=== PATIENT | male | born 1935 | race Caucasian/White ===

== ENCOUNTER 2016-04-10 21:02 | Inpatient (IN) | payer MEDICARE, OTHER ==
[~2016-04-10] VITALS: Ht 177.8 cm; Wt 66.2 kg
[~2016-04-10 21:02] MED LIST: CLOT15CR4 TP; FINA5TAB11 PO; FOLI1TAB16 PO; GABA600T2 PO; KETO15CR TP; LEVO150T8 PO; MAGN27TA2 PO; MINE50OI TP; NORT10CA PO; VALA500T PO; WARF1TAB47 PO; WARF1TAB6 PO; [UNRECOGNIZED DRUG - CODE] TP; [UNRECOGNIZED DRUG - CODE] TP
[2016-04-10] MEDS ORDERED: IV NS 0.9% 1,000 ML BAG IV ONE (21:30)
[2016-04-10] MEDS ORDERED: HALOPERIDOL LACTATE INJ 5 MG/ML VIAL ONE ×2 (21:40→22:37)
[2016-04-10] MEDS ORDERED: ACETAMINOPHEN ES 500 MG TABLET PO ONE (22:00)
[2016-04-10] MEDS ORDERED: HALOPERIDOL LACTATE INJ 5 MG/ML VIAL IM ONE ×2 (22:00→23:00)
[2016-04-10] MEDS ORDERED: IV SET PRIMARY 1 EA INFUS.SET MC ONE (22:09)
[2016-04-10] MEDS ORDERED: IV NS 0.9% 1,000 ML ONE (22:09)
[2016-04-10] MEDS ORDERED: LORAZEPAM INJ 2 MG/ML VIAL ONE (22:15)
[2016-04-10] MEDS ORDERED: LORAZEPAM INJ 2 MG/ML VIAL IV ONE (22:30)
[2016-04-10 23:02] LABS: ANION GAP 14 (5-14); CALCIUM, SERUM 8.4 mg/dL (8.5-10.1); CARBON DIOXIDE 26 mmol/L (21-32); CHLORIDE 108 mmol/L (98-107); CREATININE 1.8 mg/dL (0.6-1.3); GLUCOSE 105 mg/dL (74-106); POTASSIUM 4.8 mmol/L (3.5-5.1); SODIUM SERUM 143 mmol/L (136-145); UREA NITROGEN, BLOOD 22 mg/dL (7-18)
[2016-04-10 23:09] LABS: ALANINE AMINOTRANSFERASE 24 U/L (12-78); ALBUMIN 2.8 g/dL (3.4-5.0); ASPARTATE AMINOTRANSFERASE 22 U/L (15-37); BILIRUBIN,DIRECT 0.1 mg/dL (0.0-0.2); BILIRUBIN,TOTAL 0.5 mg/dL (0.2-1.0); INDIRECT BILIRUBIN 0.4 mg/dL (0.0-1.1); TOTAL PROTEIN, SERUM 6.2 g/dL (6.4-8.2)
[2016-04-10 23:10] LABS: TROPONIN I < 0.017 ng/mL (0.00-0.056)
[2016-04-10] MEDS ORDERED: KETAMINE HCL (500MG/10ML) 50 MG/ML VIAL ONE (23:27)
[2016-04-10 23:30] LABS: INR 4.6 (0.87-1.13)
[2016-04-10] MEDS ORDERED: MEROPENEM 1 G in IV NS 0.9% 100 ML IV ONE (23:30)
[2016-04-10 23:32] LABS: PROTHROMBIN TIME 50.4 SECS (9.5-12.7)
[2016-04-11] VITALS (8 sets, daily range): BP systolic 91–144; BP diastolic 44–97
[2016-04-11 00:06] LABS: BASOPHILS % (AUTO) 0.1 % (0.0-2.0); DIFF TOTAL % 100 %; EOSINOPHILS # (AUTO) 0.1 /CMM (0.0-0.7); EOSINOPHILS % (AUTO) 0.8 % (0.0-6.0); HEMATOCRIT 32 % (39-51); HEMOGLOBIN 10.5 g/dL (13.5-17.5); LYMPHOCYTES % (AUTO) 6.4 % (20.0-44.0); MEAN CORPUSCULAR HEMOGLOBIN 31 PG (26.0-33.0); MEAN CORPUSCULAR HGB CONC 33 g/dl (31.0-36.0); MEAN CORPUSCULAR VOLUME 95 fL (80-96); MONOCYTES # (AUTO) 0.7 /CMM (0.1-1.30); MONOCYTES % (AUTO) 4.4 % (2.0-12.0); NEUTROPHILS # (AUTO) 14.6 /CMM (1.8-8.9); NEUTROPHILS % (AUTO) 88.3 % (43.0-81.0); PLATELET COUNT (AUTO) 288 /CMM (150-450); RED BLOOD CELL COUNT(AUTO) 3.38 MIL/uL (4.5-6.0); WHITE BLOOD COUNT (AUTO) 16.4 K/uL (4.3-11.0)
[2016-04-11] MEDS ORDERED: IV NS 0.9% 1,000 ML IV PRN ×2 (00:25→11:30)
[2016-04-11] MEDS ORDERED: MAG HYDROX/AL HYDROX/SIMETH 30 ML UDC PO PRN (00:30)
[2016-04-11] MEDS ORDERED: OLANZAPINE 10 MG VIAL IM ONE ×2 (00:30→00:39)
[2016-04-11] MEDS ORDERED: Z GUARD REMEDY 2 OZ OINT TP PRN (00:30)
[2016-04-11] MEDS ORDERED: ZOLPIDEM TARTRATE 5 MG TABLET PO PRN (00:30)
[2016-04-11] MEDS ORDERED: MAGNESIUM HYDROXIDE 30 ML UDC PO PRN (00:30)
[2016-04-11] MEDS ORDERED: HYDROCODONE/APAP 5/325MG 1 EACH TABLET PO PRN (00:30)
[2016-04-11] MEDS ORDERED: ACETAMINOPHEN 325 MG TABLET MC ONE (00:30)
[2016-04-11] MEDS ORDERED: ONDANSETRON HCL/PF 4 MG/2 ML VIAL IVP PRN (00:30)
[2016-04-11] MEDS ORDERED: ACETAMINOPHEN 325 MG TABLET PO PRN (00:30)
[2016-04-11 00:33] LABS: LACTIC ACID 2.1 mmol/L (0.4-2.0)
[2016-04-11] MEDS ORDERED: ACETAMINOPHEN 650 MG/SUPP.RECT RC ONE (00:39)
[2016-04-11] MEDS ORDERED: MEROPENEM 1 G VIAL IV ONE (00:39)
[2016-04-11] MEDS ORDERED: IV NS 0.9% 100 ML IV ONE (00:40)
[2016-04-11] MEDS ORDERED: IV SET PRIMARY PUMP SET 1 EA INFUS.SET MC ONE (00:40)
[2016-04-11 00:59] LABS: *LACTIC ACID REFLEX FLAG YES
[2016-04-11] MEDS ORDERED: IV NS 0.9% 1,000 ML ONE (02:50)
[2016-04-11] MEDS ORDERED: LEVOFLOXACIN 500 MG /D5W 100ML 100 ML IV SCH (03:30)
[2016-04-11] MEDS ORDERED: SECONDARY IV SET 1 EA INFUS.SET MC ONE ×3 (03:58→12:49)
[2016-04-11] MEDS ORDERED: [UNRECOGNIZED DRUG - OTHER] TP PRN (04:00)
[2016-04-11] MEDS ORDERED: [UNRECOGNIZED DRUG - OTHER] TP PRN (04:00)
[2016-04-11] MEDS ORDERED: PIPERACILLIN /TAZOBACTAM 3.375 G VIAL IV ONE (04:42)
[2016-04-11] MEDS ORDERED: IV D5W 100 ML IV ONE (04:42)
[2016-04-11] MEDS ORDERED: PIPERACILLIN /TAZOBACTAM 3.375 G in IV D5W 100 ML IV SCH (05:00)
[2016-04-11] MEDS ORDERED: LINEZOLID RTU BAG 600 MG in PREMIX 1 EA IV SCH (09:00)
[2016-04-11] MEDS ORDERED: MEROPENEM 500 MG in IV NS 0.9% 50 ML IV SCH (11:30)
[2016-04-11] MEDS ORDERED: PIPERACILLIN /TAZOBACTAM 2.25 G in IV D5W 50 ML IV SCH (12:00)
[2016-04-11] MEDS ORDERED: VANCOMYCIN 1 GM in IV D5W 250 ML IV ONE (12:00)
[2016-04-11] MEDS ORDERED: IV NS 0.9% 1,000 ML IV ONE (12:00)
[2016-04-11] MEDS: MEROPENEM 500 MG in IV NS 0.9% 50 ML IV SCH ×2 (12:58→23:16)
[2016-04-11] MEDS: LINEZOLID RTU BAG 600 MG in PREMIX 1 EA IV SCH (12:59)
[2016-04-11] MEDS: MINERAL OIL/PETROL OINT 396 GM JAR TP SCH ×4 (13:00→18:21)
[2016-04-11] MEDS: PANTOPRAZOLE 40 MG VIAL IV SCH (13:01)
[2016-04-11] MEDS: GABAPENTIN 300 MG CAPSULE PO SCH ×2 (13:01→18:20)
[2016-04-11] MEDS: FOLIC ACID 1 MG TABLET PO SCH (13:02)
[2016-04-11] MEDS: LEVOTHYROXINE SODIUM 150 MCG TABLET PO SCH (13:02)
[2016-04-11] MEDS: VALACYCLOVIR HCL 500 MG TABLET PO SCH ×2 (13:02→23:17)
[2016-04-11] MEDS: KETOCONAZOLE 2% CREAM 15 GM TUBE TP SCH ×2 (13:03→23:23)
[2016-04-11] MEDS: CLOTRIMAZOLE/BETAMETASONE DIPROPIONATE 15 GM TUBE TP PRN (13:04)
[2016-04-11] MEDS: IV NS 0.9% 1,000 ML IV PRN (13:05)
[2016-04-11 16:33] LABS: KETONES,URINE NEGATIVE (NEGATIVE); LEUKOCYTE ESTERASE ,URINE NEGATIVE (NEGATIVE); PH,URINE 5.5 (5.0-8.0)
[2016-04-11 16:40] LABS: ADD UA MICROSCOPIC YES
[2016-04-11 16:42] LABS: ADD URINE CULTURE NO; WBC,URINE 0-2 /HPF (0-3)
[2016-04-11 18:04] LABS: BASOPHILS % (AUTO) 0.2 % (0.0-2.0); DIFF TOTAL % 100 %; EOSINOPHILS # (AUTO) 0.9 /CMM (0.0-0.7); EOSINOPHILS % (AUTO) 10.3 % (0.0-6.0); HEMATOCRIT 31 % (39-51); LYMPHOCYTES # (AUTO) 1.3 /CMM (0.8-4.8); LYMPHOCYTES % (AUTO) 15.1 % (20.0-44.0); MEAN CORPUSCULAR HEMOGLOBIN 31 PG (26.0-33.0); MEAN CORPUSCULAR HGB CONC 33 g/dl (31.0-36.0); MEAN CORPUSCULAR VOLUME 95 fL (80-96); MONOCYTES # (AUTO) 0.6 /CMM (0.1-1.30); NEUTROPHILS # (AUTO) 5.8 /CMM (1.8-8.9); NEUTROPHILS % (AUTO) 67.4 % (43.0-81.0); PLATELET COUNT (AUTO) 279 /CMM (150-450); RED BLOOD CELL COUNT(AUTO) 3.23 MIL/uL (4.5-6.0); WHITE BLOOD COUNT (AUTO) 8.7 K/uL (4.3-11.0)
[2016-04-11 18:17] LABS: CALCIUM, SERUM 8.1 mg/dL (8.5-10.1); CREATININE 1.6 mg/dL (0.6-1.3); PHOSPHORUS 3.1 mg/dL (2.5-4.9); POTASSIUM 4.1 mmol/L (3.5-5.1)
[2016-04-11 18:28] LABS: LACTIC ACID 1.3 mmol/L (0.4-2.0)
[2016-04-11] MEDS ORDERED: NORTRIPTYLINE HCL 10 MG CAPSULE PO SCH ×2 (22:00)
[2016-04-11] MEDS: FINASTERIDE (5 MG) 5 MG TABLET PO SCH (23:17)
[2016-04-11] MEDS: HALOPERIDOL LACTATE INJ 5 MG/ML VIAL IM PRN (23:43)
[2016-04-12] MEDS: LINEZOLID RTU BAG 600 MG in PREMIX 1 EA IV SCH ×2 (01:47→12:16)
[2016-04-12 04:00] VITALS: BP 124/106
[2016-04-12] MEDS: IV NS 0.9% 1,000 ML IV PRN ×2 (06:37→21:12)
[2016-04-12 07:27] LABS: BASOPHILS % (AUTO) 0.1 % (0.0-2.0); DIFF TOTAL % 100 %; EOSINOPHILS # (AUTO) 1.5 /CMM (0.0-0.7); EOSINOPHILS % (AUTO) 17.6 % (0.0-6.0); HEMATOCRIT 29 % (39-51); HEMOGLOBIN 9.5 g/dL (13.5-17.5); LYMPHOCYTES # (AUTO) 1.6 /CMM (0.8-4.8); LYMPHOCYTES % (AUTO) 18.7 % (20.0-44.0); MEAN CORPUSCULAR HEMOGLOBIN 31 PG (26.0-33.0); MEAN CORPUSCULAR HGB CONC 33 g/dl (31.0-36.0); MEAN CORPUSCULAR VOLUME 95 fL (80-96); MONOCYTES # (AUTO) 0.8 /CMM (0.1-1.30); MONOCYTES % (AUTO) 9.5 % (2.0-12.0); NEUTROPHILS # (AUTO) 4.5 /CMM (1.8-8.9); NEUTROPHILS % (AUTO) 54.1 % (43.0-81.0); PLATELET COUNT (AUTO) 284 /CMM (150-450); RED BLOOD CELL COUNT(AUTO) 3.04 MIL/uL (4.5-6.0); WHITE BLOOD COUNT (AUTO) 8.3 K/uL (4.3-11.0)
[2016-04-12 07:40] LABS: CALCIUM, SERUM 7.9 mg/dL (8.5-10.1); CREATININE 1.5 mg/dL (0.6-1.3); PHOSPHORUS 2.8 mg/dL (2.5-4.9); POTASSIUM 4.2 mmol/L (3.5-5.1)
[2016-04-12 07:45] LABS: CHOLESTEROL 113 mg/dL (<200); HDL CHOLESTEROL 42 mg/dL (40-60); LDL 53 mg/dL (0-99); TRIGLYCERIDES 60 mg/dL (30-150)
[2016-04-12 08:00] VITALS: BP 140/56
[2016-04-12 08:04] VITALS: BP 140/56
[2016-04-12] MEDS: MEROPENEM 500 MG in IV NS 0.9% 50 ML IV SCH ×2 (10:03→21:12)
[2016-04-12] MEDS: PANTOPRAZOLE 40 MG VIAL IV SCH (10:03)
[2016-04-12] MEDS: GABAPENTIN 300 MG CAPSULE PO SCH ×2 (10:03→17:00)
[2016-04-12] MEDS: FOLIC ACID 1 MG TABLET PO SCH (10:03)
[2016-04-12] MEDS: LEVOTHYROXINE SODIUM 150 MCG TABLET PO SCH (10:03)
[2016-04-12] MEDS: VALACYCLOVIR HCL 500 MG TABLET PO SCH ×2 (10:03→17:00)
[2016-04-12] MEDS: MINERAL OIL/PETROL OINT 396 GM JAR TP SCH ×4 (10:04→17:33)
[2016-04-12] MEDS: CLOTRIMAZOLE/BETAMETASONE DIPROPIONATE 15 GM TUBE TP PRN ×2 (10:06→17:34)
[2016-04-12] MEDS: KETOCONAZOLE 2% CREAM 15 GM TUBE TP SCH ×2 (10:06→17:34)
[2016-04-12] MEDS ORDERED: Z GUARD REMEDY 4 OZ OINT TP PRN (13:30)
[2016-04-12 16:00] VITALS: BP 104/48
[2016-04-12] MEDS: Z GUARD REMEDY 2 OZ OINT TP SCH (17:33)
[2016-04-12 20:00] VITALS: BP 124/71
[2016-04-12] MEDS: LINEZOLID 600 MG TABLET PO SCH (21:12)
[2016-04-12] MEDS: FINASTERIDE (5 MG) 5 MG TABLET PO SCH (21:34)
[2016-04-13 08:00] VITALS: BP 129/55
[2016-04-13] MEDS: MEROPENEM 500 MG in IV NS 0.9% 50 ML IV SCH (09:00)
[2016-04-13] MEDS: PANTOPRAZOLE 40 MG VIAL IV SCH (09:00)
[2016-04-13] MEDS: LINEZOLID 600 MG TABLET PO SCH ×3 (09:00→21:44)
[2016-04-13] MEDS: LEVOTHYROXINE SODIUM 150 MCG TABLET PO SCH (10:22)
[2016-04-13] MEDS: FOLIC ACID 1 MG TABLET PO SCH (10:22)
[2016-04-13] MEDS: VALACYCLOVIR HCL 500 MG TABLET PO SCH ×2 (10:22→16:57)
[2016-04-13] MEDS: MINERAL OIL/PETROL OINT 396 GM JAR TP SCH ×4 (10:23→16:58)
[2016-04-13] MEDS: CLOTRIMAZOLE/BETAMETASONE DIPROPIONATE 15 GM TUBE TP PRN ×2 (10:24→16:57)
[2016-04-13] MEDS: KETOCONAZOLE 2% CREAM 15 GM TUBE TP SCH ×2 (10:24→16:58)
[2016-04-13] MEDS: Z GUARD REMEDY 2 OZ OINT TP SCH ×2 (10:24→16:58)
[2016-04-13] MEDS: diphenhydrAMINE HCL 25 MG CAPSULE PO SCH ×3 (11:43→21:44)
[2016-04-13 16:00] VITALS: BP 132/72
[2016-04-13] MEDS ORDERED: GABAPENTIN 300 MG CAPSULE PO SCH ×2 (16:00)
[2016-04-13] MEDS: GABAPENTIN 300 MG CAPSULE PO SCH ×2 (16:57→21:44)
[2016-04-13 20:00] VITALS: BP 131/69
[2016-04-13] MEDS: FINASTERIDE (5 MG) 5 MG TABLET PO SCH (21:50)
[2016-04-13] MEDS ORDERED: BACITRACIN ZINC OINT (15 GM) 15 GM TUBE TP ONE (22:23)
[2016-04-14 04:00] VITALS: BP 100/48
[2016-04-14] MEDS: HALOPERIDOL LACTATE INJ 5 MG/ML VIAL IM PRN (04:47)
[2016-04-14] MEDS: diphenhydrAMINE HCL 25 MG CAPSULE PO SCH ×4 (06:27→21:55)
[2016-04-14 08:00] VITALS: BP 95/40
[2016-04-14] MEDS: LEVOTHYROXINE SODIUM 150 MCG TABLET PO SCH (08:31)
[2016-04-14] MEDS: FOLIC ACID 1 MG TABLET PO SCH (08:31)
[2016-04-14] MEDS: VALACYCLOVIR HCL 500 MG TABLET PO SCH ×2 (08:31→16:48)
[2016-04-14] MEDS: PANTOPRAZOLE 40 MG TABLET.DR PO SCH (08:31)
[2016-04-14] MEDS: LINEZOLID 600 MG TABLET PO SCH ×2 (08:31→08:39)
[2016-04-14] MEDS: Z GUARD REMEDY 2 OZ OINT TP SCH ×2 (08:32→16:48)
[2016-04-14] MEDS: MINERAL OIL/PETROL OINT 396 GM JAR TP SCH ×4 (08:32→16:48)
[2016-04-14] MEDS: KETOCONAZOLE 2% CREAM 15 GM TUBE TP SCH ×2 (08:33→16:48)
[2016-04-14 12:00] VITALS: BP 124/68
[2016-04-14 15:20] LABS: BASOPHILS % (AUTO) 0.4 % (0.0-2.0); DIFF TOTAL % 100 %; EOSINOPHILS # (AUTO) 1.2 /CMM (0.0-0.7); EOSINOPHILS % (AUTO) 11.5 % (0.0-6.0); HEMATOCRIT 32 % (39-51); HEMOGLOBIN 10.4 g/dL (13.5-17.5); LYMPHOCYTES # (AUTO) 2.1 /CMM (0.8-4.8); MEAN CORPUSCULAR HEMOGLOBIN 31 PG (26.0-33.0); MEAN CORPUSCULAR HGB CONC 33 g/dl (31.0-36.0); MEAN CORPUSCULAR VOLUME 95 fL (80-96); MONOCYTES # (AUTO) 0.4 /CMM (0.1-1.30); MONOCYTES % (AUTO) 3.6 % (2.0-12.0); NEUTROPHILS # (AUTO) 6.4 /CMM (1.8-8.9); NEUTROPHILS % (AUTO) 63.5 % (43.0-81.0); PLATELET COUNT (AUTO) 343 /CMM (150-450); RED BLOOD CELL COUNT(AUTO) 3.35 MIL/uL (4.5-6.0); WHITE BLOOD COUNT (AUTO) 10.1 K/uL (4.3-11.0)
[2016-04-14 16:00] VITALS: BP 121/79
[2016-04-14] MEDS: GABAPENTIN 300 MG CAPSULE PO SCH ×2 (16:47→21:54)
[2016-04-14 20:00] VITALS: BP 101/58
[2016-04-14] MEDS: FINASTERIDE (5 MG) 5 MG TABLET PO SCH (22:00)
[2016-04-15] MEDS: diphenhydrAMINE HCL 25 MG CAPSULE PO SCH ×2 (07:27→10:24)
[2016-04-15] MEDS: LEVOTHYROXINE SODIUM 150 MCG TABLET PO SCH (07:28)
[2016-04-15] MEDS: PANTOPRAZOLE 40 MG TABLET.DR PO SCH (07:29)
[2016-04-15 08:00] VITALS: BP_SYST 146; BP_DIAS 126; BP_DIAS 99
[2016-04-15] MEDS: VALACYCLOVIR HCL 500 MG TABLET PO SCH (08:54)
[2016-04-15] MEDS: FOLIC ACID 1 MG TABLET PO SCH (08:54)
[2016-04-15] MEDS: KETOCONAZOLE 2% CREAM 15 GM TUBE TP SCH (08:55)
[2016-04-15] MEDS: MINERAL OIL/PETROL OINT 396 GM JAR TP SCH ×2 (08:55)
[2016-04-15] MEDS: Z GUARD REMEDY 2 OZ OINT TP SCH (08:56)
== END 2016-04-15 13:40 | disposition home or self-care (01) | DRG 871 ==
LOC: ER 21:04 → TELE1 04-11 00:19 → MEDSG1 04-11 11:56
PROVIDERS: ADMIT Family Medicine; ATTEND Family Medicine
DX: A41.9 Sepsis, unspecified organism (principal); E43 Unspecified severe protein-calorie malnutrition; G92 Toxic encephalopathy; J15.6 Pneumonia due to other Gram-negative bacteria; N17.0 Acute kidney failure with tubular necrosis; J69.0 Pneumonitis due to inhalation of food and vomit; I50.32 Chronic diastolic (congestive) heart failure; C84.00 Mycosis fungoides, unspecified site; E87.0 Hyperosmolality and hypernatremia; E87.2 Acidosis; C84.10 Sezary disease, unspecified site; C84.A0 Cutaneous T-cell lymphoma, unspecified, unspecified site; N39.0 Urinary tract infection, site not specified; D68.59 Other primary thrombophilia; R65.20 Severe sepsis without septic shock; I25.10 Atherosclerotic heart disease of native coronary artery without angina pectoris; M19.90 Unspecified osteoarthritis, unspecified site; M81.0 Age-related osteoporosis without current pathological fracture; Z79.01 Long term (current) use of anticoagulants; Z86.718 Personal history of other venous thrombosis and embolism; Z86.711 Personal history of pulmonary embolism; D63.8 Anemia in other chronic diseases classified elsewhere; T45.515A Adverse effect of anticoagulants, initial encounter; T36.1X5A Adverse effect of cephalosporins and other beta-lactam antibiotics, initial encounter; Y92.89 Other specified places as the place of occurrence of the external cause; Z68.20 Body mass index [BMI] 20.0-20.9, adult; I11.0 Hypertensive heart disease with heart failure; E86.9 Volume depletion, unspecified; Z86.14 Personal history of Methicillin resistant Staphylococcus aureus infection
CPT/HCPCS: 36415; 71010-TC; 71250-TC; 72192-TC; 74150-TC; 80048-TC; 80061-TC; 80076-TC; 81000-TC; 83605-TC; 83735-TC; 84100-TC; 84484-TC; 85025-TC; 85730-TC; 87040-TC; 87081-TC; 87086-TC; 87186-TC; 87400; 92526; 92611-TC; 97001-TC; 97110-TC; 97116-TC; 97530-TC; A4216; A4606; C9113; J1630; J1956; J2020; J2060; J2185; J2543; J3370; J3490; J7030; J7060; Q0163; Z7610

== ENCOUNTER 2016-04-20 17:09 | Inpatient (IN) | payer MEDICARE, OTHER ==
[~2016-04-20] VITALS: Ht 182.9 cm; Wt 56.2 kg
[2016-04-20] MEDS ORDERED: LIDOCAINE /MPF 1% VIAL 5 ML VIAL ONE (17:30)
[2016-04-20] MEDS ORDERED: IV NS 0.9% 1,000 ML ONE (17:30)
[2016-04-20] MEDS ORDERED: IV NS 0.9% 1,000 ML BAG IV ONE (17:30)
[2016-04-20] MEDS ORDERED: OLANZAPINE 10 MG VIAL IM ONE ×2 (17:30)
[2016-04-20] MEDS ORDERED: IV SET PRIMARY PUMP SET 1 EA INFUS.SET MC ONE ×2 (17:31→21:21)
[2016-04-20 19:00] LABS: BASOPHILS # (AUTO) 0.2 /CMM (0.0-0.2); DIFF TOTAL % 100 %; EOSINOPHILS # (AUTO) 0.1 /CMM (0.0-0.7); EOSINOPHILS % (AUTO) 0.3 % (0.0-6.0); HEMATOCRIT 29 % (39-51); HEMOGLOBIN 9.2 g/dL (13.5-17.5); LYMPHOCYTES # (AUTO) 0.7 /CMM (0.8-4.8); LYMPHOCYTES % (AUTO) 3.5 % (20.0-44.0); MEAN CORPUSCULAR HEMOGLOBIN 31 PG (26.0-33.0); MEAN CORPUSCULAR HGB CONC 32 g/dl (31.0-36.0); MEAN CORPUSCULAR VOLUME 95 fL (80-96); MONOCYTES # (AUTO) 0.5 /CMM (0.1-1.30); MONOCYTES % (AUTO) 2.7 % (2.0-12.0); NEUTROPHILS # (AUTO) 18.6 /CMM (1.8-8.9); NEUTROPHILS % (AUTO) 92.5 % (43.0-81.0); PLATELET COUNT (AUTO) 298 /CMM (150-450); RED BLOOD CELL COUNT(AUTO) 3.01 MIL/uL (4.5-6.0); WHITE BLOOD COUNT (AUTO) 20.1 K/uL (4.3-11.0)
[2016-04-20] MEDS ORDERED: LORAZEPAM INJ 2 MG/ML VIAL IM ONE (19:00)
[2016-04-20] MEDS ORDERED: LORAZEPAM INJ 2 MG/ML VIAL ONE (19:07)
[2016-04-20 19:15] LABS: INR 1.8 (0.87-1.13); PROTHROMBIN TIME 18.9 SECS (9.5-12.7)
[2016-04-20 19:17] LABS: ALBUMIN 2.3 g/dL (3.4-5.0); BILIRUBIN,DIRECT 0.1 mg/dL (0.0-0.2); BILIRUBIN,TOTAL 0.5 mg/dL (0.2-1.0); CALCIUM, SERUM 8.5 mg/dL (8.5-10.1); CREATININE 2.1 mg/dL (0.6-1.3); INDIRECT BILIRUBIN 0.4 mg/dL (0.0-1.1); POTASSIUM 5.3 mmol/L (3.5-5.1); TOTAL PROTEIN, SERUM 5.3 g/dL (6.4-8.2)
[2016-04-20 19:19] LABS: TROPONIN I 0.017 ng/mL (0.00-0.056)
[2016-04-20] MEDS ORDERED: MEROPENEM 500 MG in IV NS 0.9% 50 ML IV ONE (20:00)
[2016-04-20] MEDS ORDERED: IV NS 0.9% 1,000 ML IV PRN (20:29)
[2016-04-20] MEDS ORDERED: MAG HYDROX/AL HYDROX/SIMETH 30 ML UDC PO PRN (20:30)
[2016-04-20] MEDS ORDERED: ONDANSETRON HCL/PF 4 MG/2 ML VIAL IVP PRN (20:30)
[2016-04-20] MEDS ORDERED: MAGNESIUM HYDROXIDE 30 ML UDC PO PRN (20:30)
[2016-04-20] MEDS ORDERED: [UNRECOGNIZED DRUG - OTHER] TP PRN (20:30)
[2016-04-20] MEDS ORDERED: ACETAMINOPHEN 325 MG TABLET PO PRN (20:30)
[2016-04-20] MEDS ORDERED: [UNRECOGNIZED DRUG - OTHER] TP PRN (20:30)
[2016-04-20] MEDS ORDERED: ZOLPIDEM TARTRATE 5 MG TABLET PO PRN (20:30)
[2016-04-20] MEDS ORDERED: MEROPENEM 1 G VIAL IV ONE (20:33)
[2016-04-20] MEDS ORDERED: IV NS 0.9% 250 ML IV ONE (20:33)
[2016-04-20] MEDS ORDERED: MEROPENEM 1 G in IV NS 0.9% 100 ML IV SCH ×2 (21:00)
[2016-04-20 21:01] LABS: ADD UA MICROSCOPIC NO; KETONES,URINE NEGATIVE (NEGATIVE); LEUKOCYTE ESTERASE ,URINE NEGATIVE (NEGATIVE)
[2016-04-21] MEDS ORDERED: NORTRIPTYLINE HCL 10 MG CAPSULE ONE (00:03)
[2016-04-21] MEDS ORDERED: ZOLPIDEM TARTRATE 5 MG TABLET ONE (00:04)
[2016-04-21] MEDS ORDERED: FINASTERIDE (5 MG) 5 MG TABLET ONE (00:04)
[2016-04-21] MEDS: NORTRIPTYLINE HCL 10 MG CAPSULE PO SCH (00:17)
[2016-04-21] MEDS: FINASTERIDE (5 MG) 5 MG TABLET PO SCH (00:18)
[2016-04-21] MEDS ORDERED: diphenhydrAMINE HCL 50 MG CAPSULE ONE (00:25)
[2016-04-21] MEDS: diphenhydrAMINE HCL 50 MG CAPSULE PO PRN ×2 (00:30→10:56)
[2016-04-21] MEDS ORDERED: LORAZEPAM INJ 2 MG/ML VIAL ONE (03:27)
[2016-04-21] MEDS: LORAZEPAM INJ 2 MG/ML VIAL IV PRN (03:45)
[2016-04-21 07:31] LABS: CALCIUM, SERUM 8.3 mg/dL (8.5-10.1); CREATININE 1.8 mg/dL (0.6-1.3); PHOSPHORUS 4.2 mg/dL (2.5-4.9); POTASSIUM 4.8 mmol/L (3.5-5.1)
[2016-04-21 07:33] LABS: BASOPHILS % (AUTO) 0.3 % (0.0-2.0); EOSINOPHILS # (AUTO) 0.3 /CMM (0.0-0.7); EOSINOPHILS % (AUTO) 2.9 % (0.0-6.0); HEMATOCRIT 28 % (39-51); HEMOGLOBIN 8.9 g/dL (13.5-17.5); LYMPHOCYTES # (AUTO) 0.9 /CMM (0.8-4.8); LYMPHOCYTES % (AUTO) 7.6 % (20.0-44.0); MEAN CORPUSCULAR HEMOGLOBIN 31 PG (26.0-33.0); MEAN CORPUSCULAR HGB CONC 33 g/dl (31.0-36.0); MEAN CORPUSCULAR VOLUME 96 fL (80-96); MONOCYTES # (AUTO) 0.5 /CMM (0.1-1.30); MONOCYTES % (AUTO) 4.6 % (2.0-12.0); NEUTROPHILS % (AUTO) 84.6 % (43.0-81.0); PLATELET COUNT (AUTO) 239 /CMM (150-450); RED BLOOD CELL COUNT(AUTO) 2.88 MIL/uL (4.5-6.0); WHITE BLOOD COUNT (AUTO) 11.9 K/uL (4.3-11.0)
[2016-04-21 08:00] VITALS: BP 96/65
[2016-04-21 08:20] LABS: DIFF TOTAL % 100 %
[2016-04-21] MEDS: FOLIC ACID 1 MG TABLET PO SCH (08:28)
[2016-04-21] MEDS: GABAPENTIN 300 MG CAPSULE PO SCH ×2 (08:28→17:02)
[2016-04-21] MEDS: PANTOPRAZOLE 40 MG TABLET.DR PO SCH (08:28)
[2016-04-21] MEDS: VALACYCLOVIR HCL 500 MG TABLET PO SCH ×2 (08:28→17:01)
[2016-04-21] MEDS: MINERAL OIL/PETROL OINT 396 GM JAR TP SCH ×4 (09:00→17:14)
[2016-04-21] MEDS ORDERED: [UNRECOGNIZED DRUG - MIXTURE] TP SCH (09:00)
[2016-04-21] MEDS ORDERED: MAGNESIUM AMINO ACID CHELATE PO SCH (09:00)
[2016-04-21] MEDS: KETOCONAZOLE 2% CREAM 15 GM TUBE TP SCH ×2 (09:00→17:00)
[2016-04-21] MEDS ORDERED: LEVOTHYROXINE SODIUM 150 MCG TABLET PO SCH (09:00)
[2016-04-21] MEDS ORDERED: SECONDARY IV SET 1 EA INFUS.SET MC ONE ×2 (09:05→13:50)
[2016-04-21] MEDS: MEROPENEM 1 G in IV NS 0.9% 100 ML IV SCH ×2 (09:06→21:57)
[2016-04-21] MEDS ORDERED: LEVOFLOXACIN 750 MG /D5W 150ML 750 MG in PREMIX 1 EA IV SCH (12:30)
[2016-04-21] MEDS ORDERED: FEE PK DOSING 1 MIN EA MC ONE (12:55)
[2016-04-21] MEDS: VANCOMYCIN 1 GM in IV D5W 250 ML IV SCH (14:09)
[2016-04-21] MEDS: CLOTRIMAZOLE/BETAMETASONE DIPROPIONATE 15 GM TUBE TP PRN (14:10)
[2016-04-21] MEDS: UREA 10% -AHA 4% CREAM 57 GM TUBE TP SCH ×2 (14:11→17:13)
[2016-04-21] MEDS: NEOMY SULF/BACITRAC ZN/POLY 15 GM TUBE TP SCH (14:12)
[2016-04-21] MEDS: OSELTAMIVIR PHOSPHATE 75 MG CAPSULE PO SCH ×2 (14:21→17:02)
[2016-04-21] MEDS: LEVOFLOXACIN 750 MG /D5W 150ML 750 MG in PREMIX 1 EA IV SCH (14:22)
[2016-04-21 16:00] VITALS: BP 97/66
[2016-04-21] MEDS: WARFARIN SODIUM 1 MG TABLET PO SCH (17:03)
[2016-04-21] MEDS: Z GUARD REMEDY 2 OZ OINT TP PRN (17:13)
[2016-04-22] MEDS: FINASTERIDE (5 MG) 5 MG TABLET PO SCH ×2 (00:06→21:25)
[2016-04-22] MEDS: NORTRIPTYLINE HCL 10 MG CAPSULE PO SCH ×2 (00:06→21:25)
[2016-04-22 08:13] LABS: BASOPHILS % (AUTO) 0.3 % (0.0-2.0); DIFF TOTAL % 100 %; EOSINOPHILS # (AUTO) 0.9 /CMM (0.0-0.7); EOSINOPHILS % (AUTO) 13.6 % (0.0-6.0); HEMATOCRIT 25 % (39-51); HEMOGLOBIN 7.9 g/dL (13.5-17.5); LYMPHOCYTES # (AUTO) 0.8 /CMM (0.8-4.8); LYMPHOCYTES % (AUTO) 11.9 % (20.0-44.0); MEAN CORPUSCULAR HEMOGLOBIN 30 PG (26.0-33.0); MEAN CORPUSCULAR HGB CONC 32 g/dl (31.0-36.0); MEAN CORPUSCULAR VOLUME 96 fL (80-96); MONOCYTES # (AUTO) 0.5 /CMM (0.1-1.30); MONOCYTES % (AUTO) 7.4 % (2.0-12.0); NEUTROPHILS # (AUTO) 4.5 /CMM (1.8-8.9); NEUTROPHILS % (AUTO) 66.8 % (43.0-81.0); PLATELET COUNT (AUTO) 211 /CMM (150-450); RED BLOOD CELL COUNT(AUTO) 2.59 MIL/uL (4.5-6.0); WHITE BLOOD COUNT (AUTO) 6.7 K/uL (4.3-11.0)
[2016-04-22 08:48] LABS: CALCIUM, SERUM 7.6 mg/dL (8.5-10.1); CREATININE 1.3 mg/dL (0.6-1.3)
[2016-04-22] MEDS: MEROPENEM 1 G in IV NS 0.9% 100 ML IV SCH ×2 (09:00→21:05)
[2016-04-22] MEDS: GABAPENTIN 300 MG CAPSULE PO SCH ×2 (09:01→17:44)
[2016-04-22] MEDS: LEVOTHYROXINE SODIUM 75 MCG TABLET PO SCH (09:01)
[2016-04-22] MEDS: OSELTAMIVIR PHOSPHATE 75 MG CAPSULE PO SCH (09:01)
[2016-04-22] MEDS: FOLIC ACID 1 MG TABLET PO SCH (09:01)
[2016-04-22] MEDS: VALACYCLOVIR HCL 500 MG TABLET PO SCH ×2 (09:01→17:44)
[2016-04-22] MEDS: PANTOPRAZOLE 40 MG TABLET.DR PO SCH (09:01)
[2016-04-22] MEDS: MINERAL OIL/PETROL OINT 396 GM JAR TP SCH ×4 (09:02→17:53)
[2016-04-22] MEDS: Z GUARD REMEDY 2 OZ OINT TP PRN (09:03)
[2016-04-22] MEDS: CLOTRIMAZOLE/BETAMETASONE DIPROPIONATE 15 GM TUBE TP PRN ×2 (09:03→09:05)
[2016-04-22] MEDS: NEOMY SULF/BACITRAC ZN/POLY 15 GM TUBE TP SCH (09:03)
[2016-04-22] MEDS: UREA 10% -AHA 4% CREAM 57 GM TUBE TP SCH ×2 (09:05→17:54)
[2016-04-22] MEDS ORDERED: IV D5/ 0.9% NACL 1,000 ML IV PRN (10:00)
[2016-04-22] MEDS: LORAZEPAM INJ 2 MG/ML VIAL IV PRN (10:02)
[2016-04-22] MEDS: KETOCONAZOLE 2% CREAM 15 GM TUBE TP SCH ×2 (12:35→17:54)
[2016-04-22] MEDS: diphenhydrAMINE HCL 50 MG CAPSULE PO PRN ×2 (12:36→16:00)
[2016-04-22] MEDS: VANCOMYCIN 1 GM in IV D5W 250 ML IV SCH (12:36)
[2016-04-22] MEDS ORDERED: SECONDARY IV SET 1 EA INFUS.SET MC ONE (14:20)
[2016-04-22] MEDS: METRONIDAZOLE 500MG/ NS 100ML 500 MG in PREMIX 1 EA IV SCH ×2 (14:24→22:34)
[2016-04-22 17:29] LABS: INR 1.67 (0.87-1.13); PROTHROMBIN TIME 18.1 SECS (9.5-12.7)
[2016-04-22] MEDS: WARFARIN SODIUM 1 MG TABLET PO SCH (17:49)
[2016-04-22 20:00] VITALS: BP 86/39
[2016-04-22] MEDS ORDERED: IV NS 0.9% 1,000 ML ONE (21:02)
[2016-04-22] MEDS ORDERED: IV D5/ 0.9% NACL 1,000 ML IV ONE (21:06)
[2016-04-22] MEDS ORDERED: LORAZEPAM INJ 2 MG/ML VIAL ONE (23:47)
[2016-04-23] MEDS ORDERED: LORAZEPAM INJ 2 MG/ML VIAL IV ONE
[2016-04-23] MEDS ORDERED: HALOPERIDOL LACTATE INJ 5 MG/ML VIAL ONE (00:46)
[2016-04-23] MEDS: HALOPERIDOL LACTATE INJ 5 MG/ML VIAL IM PRN (00:50)
[2016-04-23 04:00] VITALS: BP 84/66
[2016-04-23] MEDS: METRONIDAZOLE 500MG/ NS 100ML 500 MG in PREMIX 1 EA IV SCH ×3 (05:10→21:29)
[2016-04-23 07:53] LABS: BASOPHILS % (AUTO) 0.5 % (0.0-2.0); DIFF TOTAL % 100 %; EOSINOPHILS % (AUTO) 13.9 % (0.0-6.0); HEMATOCRIT 29 % (39-51); HEMOGLOBIN 9.4 g/dL (13.5-17.5); LYMPHOCYTES # (AUTO) 0.9 /CMM (0.8-4.8); LYMPHOCYTES % (AUTO) 13.3 % (20.0-44.0); MEAN CORPUSCULAR HEMOGLOBIN 31 PG (26.0-33.0); MEAN CORPUSCULAR HGB CONC 32 g/dl (31.0-36.0); MEAN CORPUSCULAR VOLUME 96 fL (80-96); MONOCYTES # (AUTO) 0.5 /CMM (0.1-1.30); MONOCYTES % (AUTO) 7.5 % (2.0-12.0); NEUTROPHILS # (AUTO) 4.5 /CMM (1.8-8.9); NEUTROPHILS % (AUTO) 64.8 % (43.0-81.0); PLATELET COUNT (AUTO) 275 /CMM (150-450); RED BLOOD CELL COUNT(AUTO) 3.01 MIL/uL (4.5-6.0); WHITE BLOOD COUNT (AUTO) 6.9 K/uL (4.3-11.0)
[2016-04-23 07:56] LABS: CALCIUM, SERUM 8.2 mg/dL (8.5-10.1); CREATININE 1.6 mg/dL (0.6-1.3); POTASSIUM 4.3 mmol/L (3.5-5.1)
[2016-04-23 08:00] VITALS: BP 113/47
[2016-04-23] MEDS ORDERED: VANCOMYCIN 1 GM in IV D5W 250 ML IV SCH (08:00)
[2016-04-23] MEDS: GABAPENTIN 300 MG CAPSULE PO SCH ×2 (08:34→16:19)
[2016-04-23] MEDS: LEVOTHYROXINE SODIUM 75 MCG TABLET PO SCH (08:34)
[2016-04-23] MEDS: PANTOPRAZOLE 40 MG TABLET.DR PO SCH (08:34)
[2016-04-23] MEDS: FOLIC ACID 1 MG TABLET PO SCH (08:34)
[2016-04-23] MEDS: VALACYCLOVIR HCL 500 MG TABLET PO SCH ×2 (08:34→16:19)
[2016-04-23] MEDS: KETOCONAZOLE 2% CREAM 15 GM TUBE TP SCH ×2 (08:43→16:21)
[2016-04-23] MEDS: MINERAL OIL/PETROL OINT 396 GM JAR TP SCH ×4 (08:56→16:21)
[2016-04-23] MEDS: UREA 10% -AHA 4% CREAM 57 GM TUBE TP SCH ×2 (08:57→16:21)
[2016-04-23] MEDS: NEOMY SULF/BACITRAC ZN/POLY 15 GM TUBE TP SCH (08:58)
[2016-04-23] MEDS: MEROPENEM 1 G in IV NS 0.9% 100 ML IV SCH (09:48)
[2016-04-23] MEDS ORDERED: IV D5W 1,000 ML IV PRN (11:30)
[2016-04-23] MEDS ORDERED: IV SET PRIMARY PUMP SET 1 EA INFUS.SET MC ONE (12:34)
[2016-04-23] MEDS: IV D5W 1,000 ML IV PRN (12:42)
[2016-04-23] MEDS: LEVOFLOXACIN 750 MG /D5W 150ML 750 MG in PREMIX 1 EA IV SCH (14:20)
[2016-04-23 16:00] VITALS: BP 93/42
[2016-04-23] MEDS: WARFARIN SODIUM 1 MG TABLET PO SCH (16:20)
[2016-04-23] MEDS: VANCOMYCIN HCL 125 MG/2.5 ML ORAL.SUSP PO SCH (18:11)
[2016-04-23 20:00] VITALS: BP 142/68
[2016-04-23] MEDS: FINASTERIDE (5 MG) 5 MG TABLET PO SCH (21:29)
[2016-04-23] MEDS: NORTRIPTYLINE HCL 10 MG CAPSULE PO SCH (21:29)
[2016-04-24] MEDS: IV D5W 1,000 ML IV PRN ×2 (02:54→15:08)
[2016-04-24 04:00] VITALS: BP 102/53
[2016-04-24] MEDS: METRONIDAZOLE 500MG/ NS 100ML 500 MG in PREMIX 1 EA IV SCH ×2 (05:18→11:57)
[2016-04-24 06:12] LABS: BASOPHILS % (AUTO) 0.2 % (0.0-2.0); DIFF TOTAL % 100 %; EOSINOPHILS # (AUTO) 1.2 /CMM (0.0-0.7); EOSINOPHILS % (AUTO) 15.5 % (0.0-6.0); HEMATOCRIT 28 % (39-51); LYMPHOCYTES # (AUTO) 1.1 /CMM (0.8-4.8); LYMPHOCYTES % (AUTO) 13.1 % (20.0-44.0); MEAN CORPUSCULAR HEMOGLOBIN 30 PG (26.0-33.0); MEAN CORPUSCULAR HGB CONC 32 g/dl (31.0-36.0); MEAN CORPUSCULAR VOLUME 96 fL (80-96); MONOCYTES # (AUTO) 0.4 /CMM (0.1-1.30); MONOCYTES % (AUTO) 4.8 % (2.0-12.0); NEUTROPHILS # (AUTO) 5.4 /CMM (1.8-8.9); NEUTROPHILS % (AUTO) 66.4 % (43.0-81.0); PLATELET COUNT (AUTO) 297 /CMM (150-450); RED BLOOD CELL COUNT(AUTO) 2.96 MIL/uL (4.5-6.0); WHITE BLOOD COUNT (AUTO) 8.1 K/uL (4.3-11.0)
[2016-04-24 06:14] LABS: CALCIUM, SERUM 8.4 mg/dL (8.5-10.1); CREATININE 1.6 mg/dL (0.6-1.3); POTASSIUM 4.3 mmol/L (3.5-5.1)
[2016-04-24] MEDS: VANCOMYCIN HCL 125 MG/2.5 ML ORAL.SUSP PO SCH ×4 (06:32→16:51)
[2016-04-24 08:00] VITALS: BP 102/64
[2016-04-24] MEDS ORDERED: VANCOMYCIN 1 GM in IV D5W 250 ML IV SCH (08:00)
[2016-04-24] MEDS: VALACYCLOVIR HCL 500 MG TABLET PO SCH ×2 (09:21→16:51)
[2016-04-24] MEDS: PANTOPRAZOLE 40 MG TABLET.DR PO SCH (09:22)
[2016-04-24] MEDS: GABAPENTIN 300 MG CAPSULE PO SCH ×2 (09:22→16:51)
[2016-04-24] MEDS: FOLIC ACID 1 MG TABLET PO SCH (09:22)
[2016-04-24] MEDS: LEVOTHYROXINE SODIUM 75 MCG TABLET PO SCH (09:22)
[2016-04-24] MEDS: MINERAL OIL/PETROL OINT 396 GM JAR TP SCH ×4 (09:22→16:53)
[2016-04-24] MEDS: UREA 10% -AHA 4% CREAM 57 GM TUBE TP SCH ×2 (09:23→16:53)
[2016-04-24] MEDS: KETOCONAZOLE 2% CREAM 15 GM TUBE TP SCH ×2 (09:23→16:53)
[2016-04-24] MEDS: NEOMY SULF/BACITRAC ZN/POLY 15 GM TUBE TP SCH (10:34)
[2016-04-24] MEDS: WARFARIN SODIUM 1 MG TABLET PO SCH (15:00)
[2016-04-24 16:00] VITALS: BP 87/47
[2016-04-24 20:00] VITALS: BP 105/57
[2016-04-24] MEDS: METRONIDAZOLE 500 MG TABLET PO SCH (20:51)
[2016-04-24] MEDS: FINASTERIDE (5 MG) 5 MG TABLET PO SCH (22:00)
[2016-04-24] MEDS: NORTRIPTYLINE HCL 10 MG CAPSULE PO SCH (22:00)
[2016-04-25] MEDS: VANCOMYCIN HCL 125 MG/2.5 ML ORAL.SUSP PO SCH ×5 (00:52→23:58)
[2016-04-25] MEDS: IV D5W 1,000 ML IV PRN ×2 (01:32→11:27)
[2016-04-25 04:00] VITALS: BP 117/45
[2016-04-25] MEDS: METRONIDAZOLE 500 MG TABLET PO SCH ×3 (05:02→21:41)
[2016-04-25 07:15] LABS: DIFF TOTAL % 100 %; EOSINOPHILS # (AUTO) 1.5 /CMM (0.0-0.7); EOSINOPHILS % (AUTO) 16.2 % (0.0-6.0); HEMATOCRIT 29 % (39-51); HEMOGLOBIN 9.3 g/dL (13.5-17.5); LYMPHOCYTES # (AUTO) 1.2 /CMM (0.8-4.8); LYMPHOCYTES % (AUTO) 12.7 % (20.0-44.0); MEAN CORPUSCULAR HEMOGLOBIN 31 PG (26.0-33.0); MEAN CORPUSCULAR HGB CONC 33 g/dl (31.0-36.0); MEAN CORPUSCULAR VOLUME 95 fL (80-96); MONOCYTES # (AUTO) 0.4 /CMM (0.1-1.30); NEUTROPHILS # (AUTO) 6.2 /CMM (1.8-8.9); NEUTROPHILS % (AUTO) 67.1 % (43.0-81.0); PLATELET COUNT (AUTO) 297 /CMM (150-450); WHITE BLOOD COUNT (AUTO) 9.2 K/uL (4.3-11.0)
[2016-04-25 07:41] LABS: CREATININE 1.5 mg/dL (0.6-1.3); POTASSIUM 4.1 mmol/L (3.5-5.1)
[2016-04-25 08:00] VITALS: BP 97/44
[2016-04-25] MEDS: FOLIC ACID 1 MG TABLET PO SCH (08:26)
[2016-04-25] MEDS: LEVOTHYROXINE SODIUM 75 MCG TABLET PO SCH (08:26)
[2016-04-25] MEDS: GABAPENTIN 300 MG CAPSULE PO SCH ×2 (08:26→16:10)
[2016-04-25] MEDS: VALACYCLOVIR HCL 500 MG TABLET PO SCH ×2 (08:26→16:10)
[2016-04-25] MEDS: PANTOPRAZOLE 40 MG TABLET.DR PO SCH (08:26)
[2016-04-25] MEDS: MINERAL OIL/PETROL OINT 396 GM JAR TP SCH ×4 (08:27→16:11)
[2016-04-25] MEDS: NEOMY SULF/BACITRAC ZN/POLY 15 GM TUBE TP SCH (08:28)
[2016-04-25] MEDS: KETOCONAZOLE 2% CREAM 15 GM TUBE TP SCH ×2 (08:28→16:12)
[2016-04-25] MEDS: UREA 10% -AHA 4% CREAM 57 GM TUBE TP SCH ×2 (08:28→16:12)
[2016-04-25] MEDS: LEVOFLOXACIN (750 MG) 750 MG TABLET PO SCH (13:35)
[2016-04-25] MEDS: WARFARIN SODIUM 1 MG TABLET PO SCH (15:20)
[2016-04-25 16:00] VITALS: BP_SYST 97; BP_DIAS 43; BP_DIAS 44
[2016-04-25 20:00] VITALS: BP 107/64
[2016-04-25] MEDS: FINASTERIDE (5 MG) 5 MG TABLET PO SCH (21:42)
[2016-04-25] MEDS: NORTRIPTYLINE HCL 10 MG CAPSULE PO SCH (21:42)
[2016-04-26 04:00] VITALS: BP 111/54
[2016-04-26 04:23] VITALS: BP 107/52
[2016-04-26] MEDS: METRONIDAZOLE 500 MG TABLET PO SCH ×3 (05:20→21:50)
[2016-04-26] MEDS: diphenhydrAMINE HCL 50 MG CAPSULE PO PRN ×2 (05:20→13:34)
[2016-04-26] MEDS: VANCOMYCIN HCL 125 MG/2.5 ML ORAL.SUSP PO SCH ×3 (05:20→17:20)
[2016-04-26 07:03] LABS: BASOPHILS % (AUTO) 0.2 % (0.0-2.0); DIFF TOTAL % 100 %; EOSINOPHILS # (AUTO) 1.4 /CMM (0.0-0.7); EOSINOPHILS % (AUTO) 17.2 % (0.0-6.0); HEMATOCRIT 32 % (39-51); HEMOGLOBIN 10.1 g/dL (13.5-17.5); LYMPHOCYTES # (AUTO) 1.1 /CMM (0.8-4.8); LYMPHOCYTES % (AUTO) 13.1 % (20.0-44.0); MEAN CORPUSCULAR HEMOGLOBIN 30 PG (26.0-33.0); MEAN CORPUSCULAR HGB CONC 32 g/dl (31.0-36.0); MEAN CORPUSCULAR VOLUME 95 fL (80-96); MONOCYTES # (AUTO) 0.6 /CMM (0.1-1.30); MONOCYTES % (AUTO) 6.9 % (2.0-12.0); NEUTROPHILS % (AUTO) 62.6 % (43.0-81.0); PLATELET COUNT (AUTO) 301 /CMM (150-450); RED BLOOD CELL COUNT(AUTO) 3.37 MIL/uL (4.5-6.0); WHITE BLOOD COUNT (AUTO) 8.1 K/uL (4.3-11.0)
[2016-04-26 07:22] LABS: CALCIUM, SERUM 7.9 mg/dL (8.5-10.1); CREATININE 1.5 mg/dL (0.6-1.3); POTASSIUM 4.4 mmol/L (3.5-5.1)
[2016-04-26 07:42] LABS: PROTHROMBIN TIME 21.7 SECS (9.5-12.7)
[2016-04-26 08:00] VITALS: BP 101/60
[2016-04-26] MEDS: GABAPENTIN 300 MG CAPSULE PO SCH ×2 (09:00→17:19)
[2016-04-26] MEDS: VALACYCLOVIR HCL 500 MG TABLET PO SCH ×2 (09:00→17:20)
[2016-04-26] MEDS: IV D5W 1,000 ML IV PRN (09:32)
[2016-04-26] MEDS: MINERAL OIL/PETROL OINT 396 GM JAR TP SCH ×4 (09:36→17:20)
[2016-04-26] MEDS: UREA 10% -AHA 4% CREAM 57 GM TUBE TP SCH ×2 (09:36→17:20)
[2016-04-26] MEDS: NEOMY SULF/BACITRAC ZN/POLY 15 GM TUBE TP SCH (09:37)
[2016-04-26] MEDS: KETOCONAZOLE 2% CREAM 15 GM TUBE TP SCH ×2 (09:37→17:21)
[2016-04-26] MEDS ORDERED: FENTANYL PF 100MCG/2ML AMPUL ONE (12:10)
[2016-04-26] MEDS ORDERED: LIDOCAINE HCL/PF 1% 30 ML SDV ONE (12:28)
[2016-04-26] MEDS: FOLIC ACID 1 MG TABLET PO SCH (13:33)
[2016-04-26] MEDS: PANTOPRAZOLE 40 MG TABLET.DR PO SCH (13:34)
[2016-04-26] MEDS: LEVOTHYROXINE SODIUM 75 MCG TABLET PO SCH (13:34)
[2016-04-26] MEDS ORDERED: SECONDARY IV SET 1 EA INFUS.SET MC ONE (13:45)
[2016-04-26] MEDS: MICAFUNGIN SODIUM 100 MG in IV NS 0.9% 100 ML IV SCH (13:49)
[2016-04-26] MEDS: WARFARIN SODIUM 1 MG TABLET PO SCH (15:43)
[2016-04-26 16:00] VITALS: BP 108/85
[2016-04-26] MEDS: HALOPERIDOL LACTATE INJ 5 MG/ML VIAL IM PRN (18:20)
[2016-04-26] MEDS: FINASTERIDE (5 MG) 5 MG TABLET PO SCH (21:50)
[2016-04-26] MEDS: NORTRIPTYLINE HCL 10 MG CAPSULE PO SCH (21:51)
[2016-04-27] MEDS: METRONIDAZOLE 500 MG TABLET PO SCH ×3 (05:49→21:00)
[2016-04-27] MEDS ORDERED: VANCOMYCIN HCL 125 MG CAPSULE PO SCH (06:00)
[2016-04-27] MEDS: VANCOMYCIN HCL 125 MG/2.5 ML ORAL.SUSP PO SCH ×5 (06:00→21:00)
[2016-04-27] MEDS: PANTOPRAZOLE 40 MG TABLET.DR PO SCH (07:30)
[2016-04-27] MEDS: KETOCONAZOLE 2% CREAM 15 GM TUBE TP SCH ×2 (09:00→17:00)
[2016-04-27] MEDS: NEOMY SULF/BACITRAC ZN/POLY 15 GM TUBE TP SCH (09:00)
[2016-04-27] MEDS: VALACYCLOVIR HCL 500 MG TABLET PO SCH ×2 (09:00→17:00)
[2016-04-27] MEDS: GABAPENTIN 300 MG CAPSULE PO SCH ×2 (09:00→17:00)
[2016-04-27] MEDS: UREA 10% -AHA 4% CREAM 57 GM TUBE TP SCH ×2 (09:00→17:00)
[2016-04-27] MEDS: FOLIC ACID 1 MG TABLET PO SCH (09:00)
[2016-04-27] MEDS: MINERAL OIL/PETROL OINT 396 GM JAR TP SCH ×4 (09:00→17:00)
[2016-04-27] MEDS: LEVOTHYROXINE SODIUM 75 MCG TABLET PO SCH (09:00)
[2016-04-27] MEDS ORDERED: POLYVINYL ALCOHOL 15 ML BOTTLE EACHEYE PRN (09:30)
[2016-04-27] MEDS ORDERED: VANCOMYCIN FOR PO/GT USE 500 MG ORAL.SUSP PO SCH (12:00)
[2016-04-27] MEDS: CIPROFLOXACIN HCL 0.3% 5 ML BOTTLE EACHEYE SCH ×3 (12:54→21:00)
[2016-04-27] MEDS ORDERED: QUETIAPINE FUMARATE 25 MG TABLET PO STA (13:00)
[2016-04-27] MEDS: LEVOFLOXACIN (750 MG) 750 MG TABLET PO SCH (14:00)
[2016-04-27] MEDS: MICAFUNGIN SODIUM 100 MG in IV NS 0.9% 100 ML IV SCH ×2 (14:00→14:01)
[2016-04-27 16:00] VITALS: BP 108/85
[2016-04-27] MEDS: WARFARIN SODIUM 1 MG TABLET PO SCH (17:00)
[2016-04-27] MEDS ORDERED: OLANZAPINE 5 MG/TAB.RAPDIS SL PRN (18:30)
[2016-04-27] MEDS: HYDROCODONE/APAP 5/325MG 1 EACH TABLET PO PRN (19:17)
[2016-04-27] MEDS: VALPROIC ACID 250 MG/5 ML UDC PO SCH (21:00)
[2016-04-27] MEDS: OLANZAPINE 5 MG/TAB.RAPDIS PO SCH (22:00)
[2016-04-27] MEDS: FINASTERIDE (5 MG) 5 MG TABLET PO SCH (22:00)
[2016-04-27] MEDS: NORTRIPTYLINE HCL 10 MG CAPSULE PO SCH (22:00)
[2016-04-28] MEDS: CIPROFLOXACIN HCL 0.3% 5 ML BOTTLE EACHEYE SCH ×6 (01:00→20:47)
[2016-04-28 03:49] VITALS: BP 105/61
[2016-04-28] MEDS: HYDROCODONE/APAP 5/325MG 1 EACH TABLET PO PRN (04:00)
[2016-04-28] MEDS: METRONIDAZOLE 500 MG TABLET PO SCH ×2 (05:00→14:06)
[2016-04-28 07:03] LABS: BASOPHILS % (AUTO) 0.4 % (0.0-2.0); EOSINOPHILS # (AUTO) 1.6 /CMM (0.0-0.7); HEMATOCRIT 32 % (39-51); HEMOGLOBIN 10.2 g/dL (13.5-17.5); LYMPHOCYTES # (AUTO) 1.1 /CMM (0.8-4.8); LYMPHOCYTES % (AUTO) 18.6 % (20.0-44.0); MEAN CORPUSCULAR HEMOGLOBIN 30 PG (26.0-33.0); MEAN CORPUSCULAR HGB CONC 32 g/dl (31.0-36.0); MEAN CORPUSCULAR VOLUME 94 fL (80-96); MONOCYTES # (AUTO) 0.4 /CMM (0.1-1.30); NEUTROPHILS % (AUTO) 48.9 % (43.0-81.0); PLATELET COUNT (AUTO) 393 /CMM (150-450); RED BLOOD CELL COUNT(AUTO) 3.37 MIL/uL (4.5-6.0); WHITE BLOOD COUNT (AUTO) 6.1 K/uL (4.3-11.0)
[2016-04-28 07:20] LABS: CALCIUM, SERUM 8.2 mg/dL (8.5-10.1); CREATININE 1.5 mg/dL (0.6-1.3); PHOSPHORUS 2.8 mg/dL (2.5-4.9); POTASSIUM 3.8 mmol/L (3.5-5.1)
[2016-04-28 07:58] LABS: DIFF TOTAL % 100 %; EOSINOPHILS % (AUTO) 26.1 % (0.0-6.0)
[2016-04-28 08:00] VITALS: BP 126/59
[2016-04-28] MEDS: PANTOPRAZOLE 40 MG TABLET.DR PO SCH (08:35)
[2016-04-28] MEDS: VALACYCLOVIR HCL 500 MG TABLET PO SCH ×2 (09:00→17:32)
[2016-04-28] MEDS: GABAPENTIN 300 MG CAPSULE PO SCH ×2 (09:00→17:28)
[2016-04-28] MEDS: LEVOTHYROXINE SODIUM 75 MCG TABLET PO SCH (09:00)
[2016-04-28] MEDS: VALPROIC ACID 250 MG/5 ML UDC PO SCH ×2 (09:01→20:45)
[2016-04-28] MEDS: Z GUARD REMEDY 2 OZ OINT TP PRN (09:05)
[2016-04-28] MEDS: KETOCONAZOLE 2% CREAM 15 GM TUBE TP SCH ×2 (09:06→17:17)
[2016-04-28] MEDS: NEOMY SULF/BACITRAC ZN/POLY 15 GM TUBE TP SCH (09:06)
[2016-04-28] MEDS: FOLIC ACID 1 MG TABLET PO SCH (09:15)
[2016-04-28] MEDS: MINERAL OIL/PETROL OINT 396 GM JAR TP SCH ×4 (09:16→17:17)
[2016-04-28] MEDS: UREA 10% -AHA 4% CREAM 57 GM TUBE TP SCH ×2 (09:17→17:17)
[2016-04-28] MEDS: VANCOMYCIN HCL 125 MG/2.5 ML ORAL.SUSP PO SCH ×4 (09:17→20:46)
[2016-04-28 11:36] LABS: EOSINOPHILS % (MANUAL) 29 % (0-4); LYMPHOCYTES % (MANUAL) 14 % (16-48)
[2016-04-28 11:37] LABS: ANISOCYTOSIS 2+; OVALOCYTES 1+; PLATELET ESTIMATE 2
[2016-04-28 11:38] LABS: SCHISTOCYTES 1+
[2016-04-28] MEDS ORDERED: IV D5/0.45 NACL 1,000 ML IV PRN (11:52)
[2016-04-28] MEDS ORDERED: FLUCONAZOLE (100 MG) 100 MG TABLET PO SCH (14:00)
[2016-04-28 16:00] VITALS: BP 114/61
[2016-04-28] MEDS: WARFARIN SODIUM 1 MG TABLET PO SCH (17:32)
[2016-04-28 20:00] VITALS: BP_SYST 102; BP_DIAS 62; BP_DIAS 67
[2016-04-28] MEDS: FINASTERIDE (5 MG) 5 MG TABLET PO SCH (20:46)
[2016-04-28] MEDS: NORTRIPTYLINE HCL 10 MG CAPSULE PO SCH (20:46)
[2016-04-28] MEDS: OLANZAPINE 5 MG/TAB.RAPDIS PO SCH (20:51)
[2016-04-29] VITALS: BP 101/54
[2016-04-29] MEDS: CIPROFLOXACIN HCL 0.3% 5 ML BOTTLE EACHEYE SCH ×5 (01:23→17:00)
[2016-04-29 04:00] VITALS: BP 100/52
[2016-04-29] MEDS: PANTOPRAZOLE 40 MG TABLET.DR PO SCH (07:30)
[2016-04-29] MEDS: VANCOMYCIN HCL 125 MG/2.5 ML ORAL.SUSP PO SCH ×3 (09:00→17:00)
[2016-04-29] MEDS ORDERED: FLUCONAZOLE (100 MG) 100 MG TABLET PO SCH (09:00)
[2016-04-29] MEDS: UREA 10% -AHA 4% CREAM 57 GM TUBE TP SCH ×2 (09:00→17:00)
[2016-04-29] MEDS: VALPROIC ACID 250 MG/5 ML UDC PO SCH (09:00)
[2016-04-29] MEDS: VALACYCLOVIR HCL 500 MG TABLET PO SCH ×2 (09:00→17:00)
[2016-04-29] MEDS: GABAPENTIN 300 MG CAPSULE PO SCH ×2 (09:00→17:00)
[2016-04-29] MEDS: MINERAL OIL/PETROL OINT 396 GM JAR TP SCH ×4 (09:00→17:00)
[2016-04-29] MEDS: KETOCONAZOLE 2% CREAM 15 GM TUBE TP SCH ×2 (09:00→17:00)
[2016-04-29] MEDS: NEOMY SULF/BACITRAC ZN/POLY 15 GM TUBE TP SCH (09:00)
[2016-04-29] MEDS: LEVOTHYROXINE SODIUM 75 MCG TABLET PO SCH (09:00)
[2016-04-29] MEDS: FOLIC ACID 1 MG TABLET PO SCH (09:00)
[2016-04-29] MEDS: Z GUARD REMEDY 2 OZ OINT TP PRN (09:28)
[2016-04-29] MEDS: LEVOFLOXACIN (750 MG) 750 MG TABLET PO SCH (14:00)
== END 2016-04-29 19:19 | disposition home health service (06) | DRG 314 ==
LOC: ER 18:14 → TELE1 20:05 → MEDSG1 21:04 → GPSOV1 04-29 14:53 → MEDSG1 04-29 16:44
PROVIDERS: ADMIT Internal Medicine; ATTEND Internal Medicine
PROC: 0JPVXXZ Removal of Tunneled Vascular Access Device from Upper Extremity Subcutaneous Tissue and Fascia, External Approach (ICD-10-PCS; principal; 2016-04-26 12:00)
DX: T80.211A Bloodstream infection due to central venous catheter, initial encounter (principal); N17.0 Acute kidney failure with tubular necrosis; G92 Toxic encephalopathy; E43 Unspecified severe protein-calorie malnutrition; R65.20 Severe sepsis without septic shock; I13.0 Hypertensive heart and chronic kidney disease with heart failure and stage 1 through stage 4 chronic kidney disease, or unspecified chronic kidney disease; I50.32 Chronic diastolic (congestive) heart failure; D68.59 Other primary thrombophilia; B49 Unspecified mycosis; C84.10 Sezary disease, unspecified site; C84.A0 Cutaneous T-cell lymphoma, unspecified, unspecified site; D68.8 Other specified coagulation defects; A04.7 Enterocolitis due to Clostridium difficile; E87.0 Hyperosmolality and hypernatremia; C84.00 Mycosis fungoides, unspecified site; Z68.1 Body mass index [BMI] 19.9 or less, adult; E87.5 Hyperkalemia; I25.10 Atherosclerotic heart disease of native coronary artery without angina pectoris; N18.9 Chronic kidney disease, unspecified; M19.90 Unspecified osteoarthritis, unspecified site; N40.0 Benign prostatic hyperplasia without lower urinary tract symptoms; E03.9 Hypothyroidism, unspecified; Z86.718 Personal history of other venous thrombosis and embolism; J44.9 Chronic obstructive pulmonary disease, unspecified; D63.8 Anemia in other chronic diseases classified elsewhere; Y84.9 Medical procedure, unspecified as the cause of abnormal reaction of the patient, or of later complication, without mention of misadventure at the time of the procedure; Y92.009 Unspecified place in unspecified non-institutional (private) residence as the place of occurrence of the external cause; F29 Unspecified psychosis not due to a substance or known physiological condition; B96.5 Pseudomonas (aeruginosa) (mallei) (pseudomallei) as the cause of diseases classified elsewhere; T45.515A Adverse effect of anticoagulants, initial encounter; Z79.01 Long term (current) use of anticoagulants; Z86.14 Personal history of Methicillin resistant Staphylococcus aureus infection; Z86.711 Personal history of pulmonary embolism; M81.0 Age-related osteoporosis without current pathological fracture; Z87.01 Personal history of pneumonia (recurrent)
CPT/HCPCS: 36415; 71010-TC; 80048-TC; 80076-TC; 81000-TC; 82272-TC; 83605-TC; 83735-TC; 84100-TC; 84484-TC; 85025-TC; 85610-TC; 85730-TC; 87040-TC; 87070-TC; 87075-TC; 87081-TC; 87186-TC; 87400; 88300-TC; 92611-TC; 93307-TC; 97001-TC; 97116-TC; 97530-TC; A4216; A4606; A6402; A6403; J1630; J1956; J2060; J2185; J2248; J2704; J3010; J3370; J3490; J7030; J7042; J7050; J7060; J7070; Q0163; Z7610

== ENCOUNTER 2016-05-06 11:24 | Inpatient (IN) | payer MEDICARE, OTHER ==
[~2016-05-06] VITALS: Ht 182.9 cm; Wt 61.2 kg
[2016-05-06] MEDS ORDERED: LORAZEPAM INJ 2 MG/ML VIAL IV ONE (11:30)
[2016-05-06] MEDS ORDERED: LORAZEPAM INJ 2 MG/ML VIAL ONE (11:31)
[2016-05-06 11:51] LABS: EOSINOPHILS # (AUTO) 0.7 /CMM (0.0-0.7); HEMOGLOBIN 9.2 g/dL (13.5-17.5)
[2016-05-06 11:53] LABS: BASOPHILS % (AUTO) 0.6 % (0.0-2.0); DIFF TOTAL % 100 %; EOSINOPHILS % (AUTO) 11.8 % (0.0-6.0); HEMATOCRIT 29 % (39-51); LYMPHOCYTES # (AUTO) 1.1 /CMM (0.8-4.8); LYMPHOCYTES % (AUTO) 17.9 % (20.0-44.0); MEAN CORPUSCULAR HEMOGLOBIN 30 PG (26.0-33.0); MEAN CORPUSCULAR HGB CONC 32 g/dl (31.0-36.0); MEAN CORPUSCULAR VOLUME 94 fL (80-96); MONOCYTES # (AUTO) 0.4 /CMM (0.1-1.30); MONOCYTES % (AUTO) 6.3 % (2.0-12.0); NEUTROPHILS # (AUTO) 3.8 /CMM (1.8-8.9); NEUTROPHILS % (AUTO) 63.4 % (43.0-81.0); PLATELET COUNT (AUTO) 271 /CMM (150-450); RED BLOOD CELL COUNT(AUTO) 3.11 MIL/uL (4.5-6.0)
[2016-05-06] MEDS ORDERED: IV NS 0.9% 1,000 ML ONE (11:53)
[2016-05-06] MEDS ORDERED: IV SET PRIMARY PUMP SET 1 EA INFUS.SET MC ONE (11:53)
[2016-05-06] MEDS ORDERED: OLANZAPINE 10 MG VIAL IM ONE (12:00)
[2016-05-06] MEDS ORDERED: IV NS 0.9% 1,000 ML BAG IV ONE (12:00)
[2016-05-06] MEDS ORDERED: diphenhydrAMINE HCL 50 MG/ML VIAL IV ONE (12:00)
[2016-05-06 12:09] LABS: TROPONIN I 0.018 ng/mL (0.00-0.056)
[2016-05-06 12:18] LABS: PROTHROMBIN TIME 85.8 SECS (9.5-12.7)
[2016-05-06 12:19] LABS: KETONES,URINE Negative (NEGATIVE); LEUKOCYTE ESTERASE ,URINE Negative (NEGATIVE)
[2016-05-06 12:19] LABS: ALANINE AMINOTRANSFERASE 29 U/L (12-78); ALBUMIN 2.3 g/dL (3.4-5.0); ANION GAP 15 (5-14); ASPARTATE AMINOTRANSFERASE 31 U/L (15-37); BILIRUBIN,DIRECT 0.1 mg/dL (0.0-0.2); BILIRUBIN,TOTAL 0.2 mg/dL (0.2-1.0); CALCIUM, SERUM 8.4 mg/dL (8.5-10.1); CARBON DIOXIDE 24 mmol/L (21-32); CHLORIDE 121 mmol/L (98-107); CREATININE 1.3 mg/dL (0.6-1.3); GLUCOSE 70 mg/dL (74-106); INDIRECT BILIRUBIN 0.1 mg/dL (0.0-1.1); POTASSIUM 5.6 mmol/L (3.5-5.1); SODIUM SERUM 154 mmol/L (136-145); TOTAL PROTEIN, SERUM 5.3 g/dL (6.4-8.2)
[2016-05-06 12:21] LABS: INR 8.17 (0.87-1.13)
[2016-05-06 12:25] LABS: ADD UA MICROSCOPIC YES
[2016-05-06 12:25] LABS: LACTIC ACID 5.3 mmol/L (0.4-2.0); UREA NITROGEN, BLOOD 24 mg/dL (7-18)
[2016-05-06 12:27] LABS: ADD URINE CULTURE NO; WBC,URINE 0-2 /HPF (0-3)
[2016-05-06] MEDS ORDERED: GABA-534 PO (12:30)
[2016-05-06] MEDS ORDERED: LEVO750T21 PO (12:30)
[2016-05-06] MEDS ORDERED: MEROPENEM 1,000 MG in IV NS 0.9% 100 ML IV ONE (12:30)
[2016-05-06] MEDS ORDERED: VANC125C11 PO (12:30)
[2016-05-06] MEDS ORDERED: VANCOMYCIN 1 GM in IV D5W 250 ML IV ONE (12:30)
[2016-05-06] MEDS ORDERED: VANC250C12 PO (12:30)
[2016-05-06] MEDS ORDERED: FLUC200T8 PO (12:30)
[2016-05-06 12:48] LABS: *LACTIC ACID REFLEX FLAG YES
[2016-05-06] MEDS ORDERED: IV SET PRIMARY 1 EA INFUS.SET MC ONE (12:50)
[2016-05-06 16:00] VITALS: BP 108/65
[2016-05-06] MEDS ORDERED: LEVOFLOXACIN (750 MG) 750 MG TABLET PO SCH (16:30)
[2016-05-06] MEDS ORDERED: Z GUARD REMEDY 2 OZ OINT TP PRN (16:30)
[2016-05-06] MEDS: WARFARIN SODIUM 1 MG TABLET PO SCH (16:30)
[2016-05-06] MEDS ORDERED: ONDANSETRON HCL/PF 4 MG/2 ML VIAL IVP PRN (16:30)
[2016-05-06] MEDS ORDERED: MINERAL OIL/PETROL OINT 396 GM JAR TP PRN ×2 (16:30)
[2016-05-06] MEDS ORDERED: CLOTRIMAZOLE/BETAMETASONE DIPROPIONATE 15 GM TUBE TP PRN (16:30)
[2016-05-06] MEDS ORDERED: ACETAMINOPHEN 325 MG TABLET PO PRN (16:30)
[2016-05-06] MEDS: VANCOMYCIN HCL 125 MG/2.5 ML ORAL.SUSP PO SCH ×2 (17:00→21:00)
[2016-05-06] MEDS: GABAPENTIN 300 MG CAPSULE PO SCH (17:00)
[2016-05-06] MEDS: VALACYCLOVIR HCL 500 MG TABLET PO SCH (17:00)
[2016-05-06] MEDS ORDERED: FEE PK DOSING 1 MIN EA MC ONE (17:21)
[2016-05-06] MEDS ORDERED: PHYTONADIONE INJ 10 MG/1 ML AMPUL IM ONE (17:30)
[2016-05-06] MEDS ORDERED: VANCOMYCIN 1 GM in IV D5W 250 ML IV SCH (18:00)
[2016-05-06] MEDS: IV D5W 1,000 ML IV PRN (19:33)
[2016-05-06 20:00] VITALS: BP 126/66
[2016-05-06] MEDS: NORTRIPTYLINE HCL 10 MG CAPSULE PO SCH (22:00)
[2016-05-06] MEDS: FINASTERIDE (5 MG) 5 MG TABLET PO SCH (22:00)
[2016-05-06] MEDS ORDERED: diphenhydrAMINE HCL 50 MG/ML VIAL ONE (22:23)
[2016-05-06] MEDS ORDERED: diphenhydrAMINE HCL 50 MG/ML VIAL IV PRN (22:30)
[2016-05-07] MEDS: IV D5W 1,000 ML IV PRN ×2 (06:09→16:05)
[2016-05-07 08:00] VITALS: BP 134/61
[2016-05-07] MEDS: GABAPENTIN 300 MG CAPSULE PO SCH ×2 (08:08→16:06)
[2016-05-07] MEDS: VANCOMYCIN HCL 125 MG/2.5 ML ORAL.SUSP PO SCH ×4 (08:08→21:00)
[2016-05-07] MEDS: VALACYCLOVIR HCL 500 MG TABLET PO SCH ×2 (08:08→16:06)
[2016-05-07] MEDS ORDERED: FOLIC ACID 1 MG TABLET PO SCH (09:00)
[2016-05-07] MEDS ORDERED: LEVOTHYROXINE SODIUM 150 MCG TABLET PO SCH (09:00)
[2016-05-07] MEDS ORDERED: FLUCONAZOLE (100 MG) 100 MG TABLET PO SCH (09:00)
[2016-05-07 12:00] VITALS: BP 99/62
[2016-05-07 12:17] LABS: BASOPHILS % (AUTO) 0.2 % (0.0-2.0); DIFF TOTAL % 100 %; EOSINOPHILS # (AUTO) 0.2 /CMM (0.0-0.7); EOSINOPHILS % (AUTO) 3.6 % (0.0-6.0); HEMATOCRIT 27 % (39-51); HEMOGLOBIN 8.6 g/dL (13.5-17.5); LYMPHOCYTES # (AUTO) 0.6 /CMM (0.8-4.8); LYMPHOCYTES % (AUTO) 10.2 % (20.0-44.0); MEAN CORPUSCULAR HEMOGLOBIN 30 PG (26.0-33.0); MEAN CORPUSCULAR HGB CONC 32 g/dl (31.0-36.0); MEAN CORPUSCULAR VOLUME 94 fL (80-96); MONOCYTES # (AUTO) 0.3 /CMM (0.1-1.30); MONOCYTES % (AUTO) 4.8 % (2.0-12.0); NEUTROPHILS # (AUTO) 4.9 /CMM (1.8-8.9); NEUTROPHILS % (AUTO) 81.2 % (43.0-81.0); PLATELET COUNT (AUTO) 199 /CMM (150-450); RED BLOOD CELL COUNT(AUTO) 2.89 MIL/uL (4.5-6.0)
[2016-05-07 12:25] LABS: ALBUMIN 2.2 g/dL (3.4-5.0); BILIRUBIN,TOTAL 0.2 mg/dL (0.2-1.0); CALCIUM, SERUM 8.4 mg/dL (8.5-10.1); CREATININE 1.6 mg/dL (0.6-1.3); PHOSPHORUS 5.2 mg/dL (2.5-4.9); POTASSIUM 5.6 mmol/L (3.5-5.1); TOTAL PROTEIN, SERUM 5.2 g/dL (6.4-8.2)
[2016-05-07 13:48] LABS: THYROID STIMULATING HORMONE 5.073 uIU/mL (0.358-3.74)
[2016-05-07 14:32] LABS: INR 2.03 (0.87-1.13); PROTHROMBIN TIME 22.1 SECS (9.5-12.7)
[2016-05-07] MEDS ORDERED: VANCOMYCIN 0.75 GM in IV D5W 250 ML IV SCH (15:00)
[2016-05-07] MEDS ORDERED: VANCOMYCIN 1 GM in IV D5W 250 ML IV SCH ×2 (15:00→19:00)
[2016-05-07] MEDS: WARFARIN SODIUM 1 MG TABLET PO SCH (15:55)
[2016-05-07 16:00] VITALS: BP 116/61
[2016-05-07] MEDS ORDERED: SECONDARY IV SET 1 EA INFUS.SET MC ONE (16:00)
[2016-05-07 18:55] LABS: URINE SODIUM, RANDOM 111 mmol/l (40-220)
[2016-05-07] MEDS: NORTRIPTYLINE HCL 10 MG CAPSULE PO SCH (21:51)
[2016-05-07] MEDS: FINASTERIDE (5 MG) 5 MG TABLET PO SCH (21:51)
[2016-05-08] MEDS ORDERED: EPINEPHRINE (1:10,000) SYRINGE 1 MG/10 ML DISP.SYRIN IVP ONE ×3 (00:10→01:01)
[2016-05-08] MEDS ORDERED: CALCIUM CHLORIDE 1,000 MG/10 ML DISP.SYRIN IV ONE ×2 (00:10→01:01)
[2016-05-08] MEDS ORDERED: SODIUM BICARBONATE SYR 50 MEQ/50 ML DISP.SYRIN IV ONE ×2 (00:10→01:01)
[2016-05-08] MEDS ORDERED: AMIODARONE 150 MG/3 ML VIAL IV ONE ×2 (00:10→01:01)
[2016-05-08] MEDS ORDERED: Magnesium 1 GM/2 ML VIAL IV ONE (01:01)
[2016-05-08] MEDS ORDERED: WARFARIN SODIUM 1 MG TABLET PO SCH (16:30)
[2016-05-09] MEDS ORDERED: VANCOMYCIN HCL 125 MG/2.5 ML ORAL.SUSP PO SCH (09:00)
== END 2016-05-08 01:02 | disposition expired | DRG 871 ==
LOC: ER 11:29 → TELE 13:16 → MED 05-07 12:37
PROVIDERS: ADMIT Nurse Practitioner Acute Care; ATTEND Nurse Practitioner Acute Care
PROC: 5A12012 Performance of Cardiac Output, Single, Manual (ICD-10-PCS; principal; 2016-05-08)
PROC: 02HV33Z Insertion of Infusion Device into Superior Vena Cava, Percutaneous Approach (ICD-10-PCS; 2016-05-08)
PROC: B548ZZA Ultrasonography of Superior Vena Cava, Guidance (ICD-10-PCS; 2016-05-08)
PROC: 0BH18EZ Insertion of Endotracheal Airway into Trachea, Via Natural or Artificial Opening Endoscopic (ICD-10-PCS; 2016-05-08)
DX: A41.9 Sepsis, unspecified organism (principal); G93.41 Metabolic encephalopathy; N17.0 Acute kidney failure with tubular necrosis; C84.A0 Cutaneous T-cell lymphoma, unspecified, unspecified site; A04.7 Enterocolitis due to Clostridium difficile; E87.2 Acidosis; E87.0 Hyperosmolality and hypernatremia; I50.32 Chronic diastolic (congestive) heart failure; C84.00 Mycosis fungoides, unspecified site; D68.9 Coagulation defect, unspecified; C84.10 Sezary disease, unspecified site; D68.59 Other primary thrombophilia; E87.5 Hyperkalemia; I25.10 Atherosclerotic heart disease of native coronary artery without angina pectoris; M81.0 Age-related osteoporosis without current pathological fracture; Z79.01 Long term (current) use of anticoagulants; Z86.14 Personal history of Methicillin resistant Staphylococcus aureus infection; Z85.828 Personal history of other malignant neoplasm of skin; Z86.711 Personal history of pulmonary embolism; Z86.718 Personal history of other venous thrombosis and embolism; D63.8 Anemia in other chronic diseases classified elsewhere; E86.0 Dehydration; R65.20 Severe sepsis without septic shock; J44.9 Chronic obstructive pulmonary disease, unspecified; I11.0 Hypertensive heart disease with heart failure
CPT/HCPCS: 36415; 70450-TC; 71010-TC; 80048-TC; 80053-TC; 80061-TC; 80076-TC; 81000-TC; 82306; 82550-TC; 82728-TC; 82962-TC; 83540-TC; 83605-TC; 83735-TC; 83935-TC; 84100-TC; 84300-TC; 84439-TC; 84443-TC; 84484-TC; 85025-TC; 85610-TC; 85730-TC; 87040-TC; A4349; A4606; A6402; C1751; J0171; J0282; J1200; J2060; J2185; J3370; J3430; J3475; J3490; J7030; J7060; J7070; Z7610